=== PATIENT | male | born 2000 | race Caucasian/White ===

== ENCOUNTER 2021-04-04 01:19 | Emergency (ER) | payer OTHER ==
[~2021-04-04] VITALS: Ht 180.3 cm; Wt 72.6 kg
[2021-04-04 01:25] VITALS: BP 125/87
[2021-04-04] MEDS ORDERED: BEN50 PO (01:28)
--- NOTE | 2021-04-04 01:30 | NUR ---
SEE COMPLETE ASSESSMENT
[2021-04-04 02:05] VITALS: BP 105/67
--- NOTE | 2021-04-04 02:05 | NUR ---
Patient discharged with v/s stable. Written and verbal after care instructions given and explained. Patient alert, oriented and verbalized understanding of instructions. Ambulatory with steady gait. All questions addressed prior to discharge. ID band removed. Patient advised to follow up with PMD. Rx of BENADRYL 50 MG. pO given. Patient educated on indication of medication including possible reaction and side effects. Opportunity to ask questions provided and answered.
== END 2021-04-04 02:05 | disposition home or self-care (01) ==
LOC: MED 01:19
DX: B09 Unspecified viral infection characterized by skin and mucous membrane lesions (principal)
CPT/HCPCS: 99282